=== PATIENT | female | born 1970 | race Caucasian/White ===

== ENCOUNTER 2016-10-21 08:41 | Emergency (ER) | payer OTHER ==
[~2016-10-21] VITALS: Ht 160 cm; Wt 72.6 kg
[~2016-10-21 08:41] MED LIST: FLEXERIL10 MG PO; IBU600 MG PO
[2016-10-21 08:52] VITALS: BP 108/75
--- NOTE | 2016-10-21 08:59 | ED GI/GU/ABDOMINAL COMPLAINT ---
History of Present Illness General Chief Complaint: Abdominal Pain/Flank Pain Stated Complaint: "I HAVE PAIN IN MY ABDOMINAL" Source: patient, old records Exam Limitations: no limitations Vital Signs & Intake/Output Vital Signs & Intake/Output Vital Signs Date Time Temp Pulse Resp B/P Pulse O2 O2 Flow FiO2 Ox Delivery Rate 10/21 0852 97.5 85 20 108/75 99 Room Air Room Air Allergies Uncoded Allergies: CATS (UNKNOWN 11/21/14) CTSCAN DYE (02/01/11) SEASONAL (08/11/15) Reconcile Medications CYCLOBENZAPRINE HCL (Flexeril) 10 MG TAB 1 TAB PO TID PRN MUSCLE SPASM Ibuprofen (Ibu) 600 MG TAB 1 TAB PO 4 TIMES/DAY PRN PAIN Pantoprazole Sodium (Protonix) 40 MG TABLET.DR 1 TAB PO DAILY GERD Triage Note: PT TO ED WITH C/O UPPER ABD PAIN "EVERYTIME AFTER I EAT, EVEN IF IT'S ONLY WATER" X MONTHS. Triage Nurses Notes Reviewed? yes LMP (ages 10-50): post menopausal ? n Is pt currently ? No Onset: Abrupt Duration: week(s): (x 1 year), constant, waxing and waning Timing: recent history Quality/Severity: burning, moderate, sharpness Severity Numbers: 6 Location: epigastric Radiation: no radiation Activities at Onset: eating Prior Abdominal Problems: similar symptoms Modifying Factors: Worsens With: eating. Associated Symptoms: denies HPI: 46 year old female with no medical history presents to emergency room for evaluation complaining of a several month history to the past year of epigastric burning sharp abdominal pain is nonradiating. She states that she feels the symptoms when she is hungry however is worse after eating. She states she is only vomited once throughout the duration of the symptoms. She has not attempted taking any ssba-rud-[id number] medications or sought care for the symptoms until today. No chest pain shortness of breath cough hemoptysis. No recent weight loss, no change in her bowel movements no black or bloody stools. She does not smoke and there are no other modifying factors or associated symptoms otherwise. (DIDIER GARDINER,LETTY) Past History Travel History Traveled to [place] past 21 day No Medical History Any Pertinent Medical History? 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 No (LETTY HERNANDEZ) Review of Systems Review of Systems Constitutional: Reports: see HPI. All Other Systems: Reviewed and Negative Comments Review of systems: See HPI, All other systems negative. Constitutional, no chills no fever, no malaise no weight loss HEENT: No visual changes no sore throat no congestion, no ear pain Cardiovascular: No chest pain , no palpitation Skin, no jaundice no rashes, no change in skin Respiratory: No dyspnea no cough no sputum GI: No nausea no vomiting, no diarrhea, no bloating/constipation : No dysuria Muscle skeletal: No joint pain, no back pain, no neck pain, Neurologic: No numbness, no headache Psych: No stress Heme/endocrine: No bruising no bleeding Immunology: No lymphadenopathy (LETTY HERNANDEZ) Physical Exam Physical Exam General Appearance: well developed/nourished, no apparent distress, alert, awake Gastrointestinal: soft Comments: Well-developed well-nourished person in no acute distress HEENT: Normal EENT exam; PERRL, EOMI,HEAD is atraumatic. moist mucous membranes. Neck: Supple, normal range of motion Back: Nontender, no CVA tenderness. Full range of motion Cardiovascular: Regular rate and rhythms no murmurs rubs Respiratory: No respiratory distress. Patient speaking in full complete sentences. Breath sounds clear to auscultation bilaterally: NO W/R/R Abdomen: Soft, epigastric tenderness, neg murphys nondistended, no appreciable organomegaly. Normal bowel sounds. No rebound/guarding, No ascites. Extremity: No edema, full range of motion of extremities Neuro: Alert oriented x3, motor sensory normal, There were no obvious focal neurologic abnormalities. Skin: No appreciable rash on exposed skin, skin is warm and dry. no jaundice Psych: Mood and affect is normal, memory and judgment is normal. Core Measures ACS in differential dx? No Severe Sepsis Present: No Septic Shock Present: No (LETTY HERNANDEZ) Progress Differential Diagnosis: AMI, biliary colic, bowel obstruction, cholecystitis, diverticulitis, gastritis, hepatitis, hernia, inflamm bowel dis, intrauterine , kidney stone, pancreatitis, peptic ulcer, PUD/GERD, perforated viscous, SBO Diagnostic Imaging: Viewed by Me: CT Scan. Discussed w/RAD: CT Scan. Radiology Impression: PATIENT: TIMBO STEINER PRESENT AGE : 46 PATIENT ACCOUNT NO: [id number] : 70 LOCATION: [facility] ORDERING PHYSICIAN: LETTY GARDINER SERVICE DATE: 10/21/16 EXAM TYPE: CAT - CT ABD & PELVIS W/O IV CONTRAS EXAMINATION: CT ABDOMEN AND PELVIS WITHOUT CONTRAST CLINICAL INFORMATION: Epigastric pain for months. Rule out hiatal hernia, pancreatitis. COMPARISON: CT scan of the abdomen and pelvis dated 08/11/2015. Right upper quadrant ultrasound dated 09/09/2006. TECHNIQUE: Multidetector volumetric imaging was performed from the superior aspect of the liver through the pubic symphysis. Sagittal and coronal reformatted images were obtained on the technologist workstation. DLP: 346.22 mGy-cm. FINDINGS: LUNG BASES: The visualized lung bases are unremarkable. LIVER, GALLBLADDER, AND BILIARY TREE: The liver is normal in size, shape, and attenuation. No focal hepatic lesion on noncontrast imaging. No biliary ductal dilatation is present. The gallbladder is unremarkable with no evidence of radiopaque gallstones, gallbladder wall thickening, or obvious pericholecystic inflammatory changes. PANCREAS, SPLEEN, ADRENAL GLANDS: Unremarkable on noncontrast imaging. Specifically, no imaging evidence of acute pancreatitis. No peripancreatic collections. KIDNEYS AND URETERS: The kidneys are normal in size, shape, and attenuation. No hydronephrosis, hydroureter, or calculi seen. No perinephric stranding. BLADDER: Newly completely decompressed and suboptimally assessed, but unremarkable. No bladder calculi. GASTROINTESTINAL TRACT: The stomach is distended with ingested fluid and other solid debris and is otherwise unremarkable. The small and large bowel are unremarkable. No significant colonic diverticulosis. The appendix is normal. ABDOMINAL WALL: No significant hernia is appreciated. LYMPH NODES, VASCULAR: Unremarkable. No adenopathy or free fluid. PELVIC VISCERA: Unremarkable. OSSEOUS STRUCTURES: Mild vertebral spondylosis in lower thoracic spine and lower lumbar spine. Left-sided pseudoarthrosis between the transverse process of L5 and the upper sacrum noted. IMPRESSION: No significant abnormality. No evidence of hiatal hernia or pancreatitis. DICTATED BY: KINA CEDILLO MD DATE/TIME DICTATED:10/21/161003 COMMUNICATIONS PROGRAM MANAGER:BENJAMIN DATE/ TIME TRANSCRIBED:10/21/161003 CONFIDENTIAL, DO NOT COPY WITHOUT APPROPRIATE AUTHORIZATION. <Electronically signed in Other Vendor System> SIGNED BY: KINA CEDILLO MD 10/21/16 1017 Initial ED EKG: none (LETTY HERNANDEZ) Plan of Care: Orders Procedure Date/time Status URINALYSIS 10/21 958 Complete HUMAN BETA HCG SCREEN 10/21 910 Complete LIPASE 10/21 858 Complete COMPREHENSIVE METABOLIC PANEL 10/21 858 Complete CBC WITHOUT DIFFERENTIAL 10/21 858 Complete AMYLASE 10/21 858 Complete Laboratory Tests 10/21/16 1010: Urine Color YEL, Urine Clarity HAZY H, Urine pH 6.0, Ur Specific [place] >= 1.030, Urine Protein NEG, Urine Ketones NEG, Urine Nitrite NEG, Urine Bilirubin NEG, Urine Urobilinogen 0.2, Ur Leukocyte Esterase SMALL H, Ur Microscopic SEDIMENT EXAMINED, Urine RBC RARE, Urine WBC 25-50 H, Ur Epithelial Cells MANY H, Urine Mucus MANY H, Urine Hemoglobin NEG, Urine Glucose NEG 10/21/16 0911: Anion Gap 10, Estimated GFR > 60, BUN/Creatinine Ratio 21.3, Glucose 91, Calcium 9.6, Total Bilirubin 0.5, AST 30, ALT 54 H, Alkaline Phosphatase 64, Total Protein 7.0, Albumin 4.2, Globulin 2.8, Albumin/Globulin Ratio 1.5, Amylase 37, Lipase 72, Total Beta HCG NEGATIVE, CBC w Diff NO MAN DIFF REQ, RBC 4.71, MCV 79.5 L, MCH 26.8 L, RDW 14.5, MPV 8.2, Gran % 49.8, Lymphocytes % 41.3, Monocytes % 4.1, Eosinophils % 4.4, Basophils % 0.4, Absolute Granulocytes 3.8, Absolute Lymphocytes 3.1, Absolute Monocytes 0.3, Absolute Eosinophils 0.3, Absolute Basophils 0, PUBS MCHC 33.7 10/21/16 0900: Total Beta HCG Cancelled Labs ordered old records reviewed patient medicated GI cocktail CAT scan ordered case discussed with Dr. Cardoza 10/21/2016 10:45:56 AMI discussed with the patient at length all of her lab results and CAT scan findings, discussed with her give given her findings today symptoms may be indicative of reflux peptic ulcer disease. I discussed the need for bland diet clear liquids. Prescription for Protonix was provided advised close follow-up with GI information was provided for the same , i answered all of her questions she feels comfortable with PLAN (LETTY HERNANDEZ) Departure Departure Time of Disposition: 1038 Disposition: HOME OR SELF CARE Condition: Stable Clinical Impression Primary Impression: Gastritis Referrals: DEXTER GONSALEZ,RENETTA NGUYEN APRN (PCP/Family) Additional Instructions: follow up with your pmd as well as army officer dr villalobos this week. bland diet, no fatty spicy greasy foods. protonix as directed. return at anytime sooner with any concerns Departure Forms: Customer Survey General Discharge Information Prescriptions: Current Visit Scripts Pantoprazole Sodium (Protonix) 1 TAB PO DAILY #30 TAB (LETTY HERNANDEZ) PA/OPERATIONS ENGINEER Co-Sign Statement Statement: ED Attending supervision documentation- [] I saw and evaluated the patient. I have also reviewed all the pertinent lab results and diagnostic results. I agree with the findings and the plan of care as documented in the PA's/OPERATIONS ENGINEER's documentation. [x] I have reviewed the ED Record and agree with the PA's/OPERATIONS ENGINEER's documentation. [] Additions or exceptions (if any) to the PAs/OPERATIONS ENGINEER's note and plan are summarized below: [] (ANN-MARIE GONSALEZ,BALJINDER Hawkins)
[2016-10-21 09:23] LABS: ABSOLUTE BASOPHIL COUNT 0 /CUMM (0.0-0.2); ABSOLUTE EOSINOPHIL COUNT 0.3 /CUMM (0.0-0.7); ABSOLUTE GRANULOCYTE CT 3.8 /CUMM (1.4-6.5); ABSOLUTE LYMPH COUNT 3.1 /CUMM (1.2-3.4); ABSOLUTE MONOCYTE COUNT 0.3 /CUMM (0.10-0.60); BASOPHIL % 0.4 % (0.0-2.0); EOSINOPHIL % 4.4 % (0-5); GRANULOCYTE % 49.8 % (42.2-75.2); HEMATOCRIT 37.5 % (37-47); MEAN CORPUSCULAR HGB 26.8 PG (27.0-31.0); MEAN CORPUSCULAR HGB CONC 33.7 G/DL (33.0-37.0); MEAN CORPUSCULAR VOLUME 79.5 FL (81.0-99.0); MEAN PLATELET VOLUME 8.2 FL (7.4-10.4); PLATELET COUNT 324 /CUMM (130-400); RBC DISTRIBUTION WIDTH 14.5 % (11.5-14.5); RED BLOOD CELL CT 4.71 /CUMM (4.20-5.40); WHITE BLOOD CELL COUNT 7.6 /CUMM (4.8-10.8)
--- NOTE | 2016-10-21 10:17 | CT SCAN REPORT ---
EXAMINATION: CT ABDOMEN AND PELVIS WITHOUT CONTRAST CLINICAL INFORMATION: Epigastric pain for months. Rule out hiatal hernia, pancreatitis. COMPARISON: CT scan of the abdomen and pelvis dated 08/11/2015. Right upper quadrant ultrasound dated 09/09/2006. TECHNIQUE: Multidetector volumetric imaging was performed from the superior aspect of the liver through the pubic symphysis. Sagittal and coronal reformatted images were obtained on the technologist workstation. DLP: 346.22 mGy-cm. FINDINGS: LUNG BASES: The visualized lung bases are unremarkable. LIVER, GALLBLADDER, AND BILIARY TREE: The liver is normal in size, shape, and attenuation. No focal hepatic lesion on noncontrast imaging. No biliary ductal dilatation is present. The gallbladder is unremarkable with no evidence of radiopaque gallstones, gallbladder wall thickening, or obvious pericholecystic inflammatory changes. PANCREAS, SPLEEN, ADRENAL GLANDS: Unremarkable on noncontrast imaging. Specifically, no imaging evidence of acute pancreatitis. No peripancreatic collections. KIDNEYS AND URETERS: The kidneys are normal in size, shape, and attenuation. No hydronephrosis, hydroureter, or calculi seen. No perinephric stranding. BLADDER: Newly completely decompressed and suboptimally assessed, but unremarkable. No bladder calculi. GASTROINTESTINAL TRACT: The stomach is distended with ingested fluid and other solid debris and is otherwise unremarkable. The small and large bowel are unremarkable. No significant colonic diverticulosis. The appendix is normal. ABDOMINAL WALL: No significant hernia is appreciated. LYMPH NODES, VASCULAR: Unremarkable. No adenopathy or free fluid. PELVIC VISCERA: Unremarkable. OSSEOUS STRUCTURES: Mild vertebral spondylosis in lower thoracic spine and lower lumbar spine. Left-sided pseudoarthrosis between the transverse process of L5 and the upper sacrum noted. IMPRESSION: No significant abnormality. No evidence of hiatal hernia or pancreatitis.
[2016-10-21] MEDS ORDERED: PROTONIX40 M3 PO (10:40)
== END 2016-10-21 10:45 ==
LOC: ERH 08:41
PROVIDERS: Physician Assistant Medical
DX: K29.70 Gastritis, unspecified, without bleeding (principal)
CPT/HCPCS: 74176; 81001